=== PATIENT | female | born 1985 | race Caucasian/White ===

== ENCOUNTER → 2019-06-11 10:29 | Outpatient (CLI) | payer BC, SELFPAY ==
--- NOTE | ~2019-06-11 | XR_ITS ---
EXAMINATION: XR abdomen obstructive series DATE: 06/11/2019 10:45 INDICATION: Abdominal pain and bloating TECHNIQUE: Supine and upright views of the abdomen. FINDINGS: No prior studies for comparison. The visualized lung parenchyma is normal.. There is a nonobstructive bowel gas pattern. Gas and stool are seen throughout the colon to the level of the rectum. There is no free air. IMPRESSION: 1. No acute abdominal abnormality. Reviewed, dictated and finalized at location A. FORCE ADVISOR
== END ==
PROVIDERS: PCP Family Medicine; Visit Provider Family Medicine
DX: R10.9 Unspecified abdominal pain (principal)
CPT/HCPCS: 74019

== ENCOUNTER 2020-03-25 12:58 | Emergency (ER) | payer BC, SELFPAY ==
--- NOTE | ~2020-03-25 | XR_ITS ---
EXAMINATION: XR chest 2V DATE: 03/25/2020 13:14 INDICATION: Cough. TECHNIQUE: Frontal and lateral views of the chest were obtained. COMPARISON: None. FINDINGS: The chest demonstrates clear lungs without pneumonia, pleural effusion, or pneumothorax. Th e heart size is normal. IMPRESSION: 1. No acute cardiopulmonary disease. Reviewed, dictated and finalized at location A. CH PASTER
[2020-03-25 13:06] VITALS: BP 115/68; PULSE 73; RESP 20; TEMP 36.4; O2SAT 100
[2020-03-25 13:08] VITALS: BP 115/68; PULSE 73; RESP 20; TEMP 36.4; O2SAT 100
--- NOTE | 2020-03-25 13:31 | ED.URI ---
HPI - URI/Sore Throat General Chief Complaint: Upper Respiratory Infection Stated Complaint: cough Time Seen by Provider: 03/25/20 13:20 Source: patient Mode of arrival: ambulatory Limitations: no limitations History of Present Illness HPI Narrative: Lindsay Armas is a 35 yo female with no PMH who comes to [facility] with complaints of deep cough that worsens at nighttime for the last week. She has had no sore throat except for irritation from all the coughing no sinus congestion or sinus tenderness. She is unaware of any nasal discharge but cough is barking type cough. Patient states that she is been feeling poorly for the week but is not checking her temperature. Unable to sleep at night even sitting up because of the frequency and after coughing Related Data Allergies Allergy/AdvReac Type Severity Reaction Status Date / Time No Known Allergies Allergy Uncoded 07/22/19 07:46 Review of Systems Review of Systems: Narrative: CONSTITUTIONAL: Denies fever, chills, sweats. EYES: Denies visual changes, redness, discharge. ENT: Denies rhinorrhea, congestion, sore throat, otalgia. CARDIOVASCULAR: Denies chest pain, palpitations, edema. RESPIRATORY: Denies dyspnea, wheezing, has deep and persistent cough GASTROINTESTINAL: Denies abdominal pain, nausea, vomiting, diarrhea. GENITOURINARY: Denies dysuria, hematuria, abnormal discharge SKIN: Denies rash or itching. NEUROLOGIC: Denies numbness, or focal weakness. PSYCHIATRIC: Denies anxiety or depression. [facility] Past Medical History Medical History BLAZE (generalized anxiety disorder) Surgical History Surgical History History of bunionectomy left x 2 Family History Family History Other Family history of cardiovascular disease Social History Social History (Updated 03/25/20 @ 13:35 by Tamica Hayes CNP) Years smoked: 15 Smoking status: Former smoker Tobacco type: cigarettes Second hand tobacco smoke exposure: No Smoking end date: 04/06/14 Alcohol intake: current Drinks per week: 3 Substance use: never Substance use type: does not use Gender identity (if verbalized by the patient): Female Comments At time of signature, I agree with nursing past medical, surgical, social and family history. There is no relevant family history pertinent to the presenting complaint. Exam Narrative: Exam Narrative: GENERAL: This is a well-nourished, well-developed patient, in moderate distress. HEAD: normocephalic, atraumatic. EYES: Sclera clear/white. Vision is grossly intact. EARS: External ears normal, auditory canals clear and without drainage, TMs normal without perforation. Hearing grossly intact. NOSE: External nose normal without nasal discharge, nares without redness, no rhinorrhea. Moderate clear drainage posterior pharynx THROAT: Mucous membranes moist, posterior pharynx pink mildly erythematous NECK: Neck supple, non-tender CARDIOVASCULAR: Regular rate and rhythm without murmurs, gallops, or rubs. RESPIRATORY: Diminished to auscultation. Breath sounds equal bilaterally. No wheezes, rales, or rhonchi. GASTROINTESTINAL: Abdomen soft, non-tender, SKIN: warm, intact with no suspicious lesions or rash, good texture and turgor. NEURO: awake, alert, and oriented to person, place and time. There were no obvious focal neurologic abnormalities. Steady gait EXTREMITIES: Normal range of motion. BACK: Nontender without deformity Course Course Emergency Course: Came to [facility] with 1 week history of deep barking cough that keeps her up at night Chest x-ray is negative for cardiopulmonary process Patient started on Zithromax along with prednisone and codeine cough syrup Follow-up with PCP Vital Signs Vital signs: Vital Signs Temperature 97.6 F 03/25/20 13:06 Pulse Rate 73 03/25/20 1
== END 2020-03-25 13:50 | disposition home or self-care (01) ==
PROVIDERS: Emergency Provider Nurse Practitioner; PCP Family Medicine
DX: J40 Bronchitis, not specified as acute or chronic (principal); Z87.891 Personal history of nicotine dependence
CPT/HCPCS: 71046; 99213; G0463

== ENCOUNTER → 2020-11-19 12:05 | Outpatient (CLI) | payer OTHER, SELFPAY ==
--- NOTE | ~2020-11-19 | XR_ITS ---
XR_CERV2-3V_CR 11/19/2020 12:44 Indication: Cervicalgia Procedure: 3 view cervical spine Comparison: No prior studies for comparison. Findings: Straightening of cervical lordosis, likely due to muscle spasm or patient positioning. No f racture or traumatic malalignment. No prevertebral soft tissue abnormality. No foreign bodies. Odonto id process within normal limits. Mild disc narrowing at C5-6. There is mild uncinate degenerative jitendra nges at C4-5 and C5-6. Impression: 1: Mild cervical spondylosis. Reviewed, dictated and finalized at location A. Impression: 1: Mild cervical spondylosis.
== END ==
PROVIDERS: PCP Family Medicine; Visit Provider Family Medicine
DX: M47.892 Other spondylosis, cervical region (principal)
CPT/HCPCS: 72040

== ENCOUNTER → 2021-04-19 12:35 | Outpatient (CLI) | payer OTHER, SELFPAY ==
--- NOTE | ~2021-04-19 | XR_ITS ---
EXAMINATION: XR abdomen/kub 1V EXAM DATE: 04/19/2021 13:28 INDICATION: Gross hematuria. TECHNIQUE: Frontal projection(s) of the abdomen for interpretation. Comparison is made to prior exami nation from 06/11/2019. FINDINGS: There is moderate amount of colonic stool and gas. No small bowel dilation, nonobstructiv e bowel gas pattern. There are no suspicious calcifications identified. There is no organomegaly suspected. The bones are unremarkable. IMPRESSION: Moderate amount of colonic stool. Reviewed, dictated and finalized at location A. LIFTER
--- NOTE | ~2021-04-19 | CT_ITS ---
EXAMINATION: CT abdomen pelvis wo/w con DATE: 04/19/2021 13:28 INDICATION: Gross hematuria TECHNIQUE: Computed tomography (CT) of the abdomen and pelvis was performed without intravenous contr ast. CT of the abdomen and pelvis was then performed with a total of 130 mL Omnipaque 350 intravenous contrast using a double-bolus technique for simultaneous opacification of the renal parenchyma and r enal collecting system. The dose-length product (DLP) was 1174.34 mGy-cm. Automated exposure control and iterative reconstruction technique were employed. COMPARISON: None FINDINGS: Minimal dependent atelectasis is present in the lung bases. The heart size is normal. The l iver, spleen, pancreas, gallbladder, and adrenal glands are normal. No stones are identified in the k idneys, ureters, or bladder. There is no hydronephrosis or hydroureter. A millimeter hypoattenuating lesion of the left kidney is too small to characterize but likely represents a cyst. Portions of the right distal ureter are not opacified however no suspicious renal or urothelial lesion is identified. No pathologically enlarged abdominal or pelvic lymph nodes are identified. There is no free intraper itoneal gas or evidence of bowel obstruction. IMPRESSION: 1. No CT correlate for the patient's symptoms. Reviewed, dictated and finalized at location F. DESTRUCTIVE TESTING SPECIALIST
[2021-04-19 13:04] LABS: Estimated Glomerular Filt Rate > 60
== END ==
PROVIDERS: Visit Provider Nurse Practitioner Adult Health
DX: R31.0 Gross hematuria (principal)
CPT/HCPCS: 74018; 74178; Q9967

== ENCOUNTER 2023-01-29 07:00 | Outpatient (NON) | payer OTHER, SELFPAY | END 2023-01-29 07:01 | disposition home or self-care (01) | LOC: ANHLAB 01-30 10:50 | PROVIDERS: PCP Family Medicine; Visit Provider Internal Medicine Gastroenterology | DX: R10.13 Epigastric pain (principal) | CPT/HCPCS: 88305 ==

== ENCOUNTER 2023-01-29 08:59 | Day surgery (SDC) | payer OTHER, SELFPAY ==
[2023-01-07 14:14] VITALS: BMI 24.1
[2023-01-29 10:05] VITALS: BP 108/56; PULSE 58; RESP 20; TEMP 37.4; O2SAT 100
[2023-01-29] MEDS: LACTATED RINGERS 1,000 ML 150 ML IV CONT (10:15)
--- NOTE | 2023-01-29 10:20 | WPDANESEPPF ---
Anes - Initial Pre Proc Eval Procedure: Operation Date: 01/29/23 11:30 Proposed Procedures p Esophagogastroduodenoscopy - Oleg Tesfaye MD Date/Time: 01/29/23 10:20 Surgeon: Oleg Tesfaye MD Pre Op Diagnosis: Epigastric Pain Patient Data Age: 37 Gender: F Height: 1.73 m Weight: 71.4 kg Last Vital Signs Temp 37.4 C 01/29/23 10:05 Pulse 58 L 01/29/23 10:05 Resp 20 01/29/23 10:05 BP 108/56 L 01/29/23 10:05 Pulse Ox 100 01/29/23 10:05 O2 Del Method Room Air 01/29/23 10:05 Allergies Allergy/AdvReac Type Severity Reaction Status Date / Time No Known Allergies Allergy unknown Uncoded 01/29/23 10:07 Home Medications Medication Instructions Recorded Confirmed Type cetirizine 10 mg tablet 10 mg PO DAILY PRN Diarrhea 12/03/22 01/09/23 History citalopram 10 mg tablet (Celexa) 10 mg PO DAILY 12/03/22 01/29/23 History Patient hx anesthesia problems: none Family hx anesthesia problems: none Results Review: All pre-operative results and documents have been reviewed as part of the pre-operative evaluation. [facility] Past Medical History Medical History Environmental allergies BLAZE (generalized anxiety disorder) History of migraine Surgical History Surgical History History of bunionectomy left x 2 - 2002 and 2009 History of hysterectomy (~07/2022) Family History Family History Grandparent Family history of cardiovascular disease Social History Social History Social History: Smoking packs per day: 0.5 Smoking cigarettes per day: 10.0 Years smoked: 15 Smoking pack-years: 7.50 Smoking status: Former smoker Tobacco type: cigarettes Second hand tobacco smoke exposure: No Smoking end date: 04/06/11 Alcohol intake: current Alcohol use details: rarely Substance use: current Substance use type: marijuana Other substance usage details: daily Lack of Transportation: No Lack of Food: Never True Current Housing: I Have Housing Concerned About Future Housing: No Difficulty Paying Gas/Electric Bills: No Difficulty Paying for Meds: No Currently Unemployed: No Education: Associate Degree Difficulty w/ Childcare or Family Care: No Living arrangements: with family Additional living arrangements comments: Boyfriend and children Occupation/Education: occupation Gender identity (if verbalized by the patient): Female Sexual Orientation (if Verbalized by the Patient): Straight or Heterosexual Spiritual care concerns: No Agree to blood products: Yes Anes - Eval Final PreProcedure Day of Procedure 01/29/23 10:20 Patient weight: normal Heart: regular rate and rhythm Lungs: clear to auscultation Airway: Mallampati scale class II Neurological: alert and oriented Last oral intake: >/= 8 hours ASA classification: II Emergent: no Anesthetic plan: proceed Anesthesia type and monitoring: general GIVS and standard monitoring Results Review: All pre-operative results and documents have been reviewed as part of the pre-operative evaluation. Informed Consent: The patient's anesthetic plan and its attendant risks and benefits were discussed with the patient/family/POA. Questions were solicited and answers provided to the satisfaction of the patient/family/POA.
--- NOTE | 2023-01-29 10:38 | PM.HPGS ---
History of Present Illness History of Present Illness Consent: Risks, benefits, and alternatives have been discussed and questions answered. Patient agrees to proceed with procedure. Chief complaint: Epigastric Pain Narrative: Lindsay Armas is a 37 year old female with epigastric pain and gerd, on nexium but did not help, never had egd Review of Systems Constitutional: Constitutional: Denies headache(s) and Denies weakness Eyes: Eyes: Denies blurry vision ENT: Reports Normal hearing present, Denies headache(s) and Denies neck pain Cardiovascular: Cardiovascular: Denies chest pain and Denies dyspnea Respiratory: Respiratory: Denies dyspnea Gastrointestinal: Gastrointestinal: Reports no additional gastrointestinal complaints Genitourinary: Genitourinary: Denies dysuria Musculoskeletal: Musculoskeletal: Denies neck pain Integumentary/Breasts: Skin/Breast: Denies dry skin Neurologic: Reports Normal hearing present, Denies headache(s) and Denies weakness Psychiatric: Psychiatric: Denies anxiety Endocrine: Endocrine: Denies change in body appearance Hematologic/Lymphatic: Hematologic/Lymphatic: Denies easy bleeding Allergic/Immunologic: Allergic/Immunologic: Denies urticaria PMFSH Past Medical History Medical History Environmental allergies BLAZE (generalized anxiety disorder) History of migraine Surgical History Surgical History History of bunionectomy left x 2 - 2002 and 2009 History of hysterectomy (~07/2022) Family History Family History Grandparent Family history of cardiovascular disease Social History Social History Social History: Smoking packs per day: 0.5 Smoking cigarettes per day: 10.0 Years smoked: 15 Smoking pack-years: 7.50 Smoking status: Former smoker Tobacco type: cigarettes Second hand tobacco smoke exposure: No Smoking end date: 04/06/11 Alcohol intake: current Alcohol use details: rarely Substance use: current Substance use type: marijuana Other substance usage details: daily Lack of Transportation: No Lack of Food: Never True Current Housing: I Have Housing Concerned About Future Housing: No Difficulty Paying Gas/Electric Bills: No Difficulty Paying for Meds: No Currently Unemployed: No Education: Associate Degree Difficulty w/ Childcare or Family Care: No Living arrangements: with family Additional living arrangements comments: Boyfriend and children Occupation/Education: occupation Gender identity (if verbalized by the patient): Female Sexual Orientation (if Verbalized by the Patient): Straight or Heterosexual Spiritual care concerns: No Agree to blood products: Yes Meds Home Medications and Allergies Home Medications Medication Instructions Recorded Confirmed Type cetirizine 10 mg tablet 10 mg PO DAILY PRN Diarrhea 12/03/22 01/09/23 History citalopram 10 mg tablet (Celexa) 10 mg PO DAILY 12/03/22 01/29/23 History Allergies Allergy/AdvReac Type Severity Reaction Status Date / Time No Known Allergies Allergy unknown Uncoded 01/29/23 10:07 Vital Signs Vital Signs - 24 hr 01/29/23 10:05 Temperature 99.4 F Pulse Rate 58 L Respiratory Rate 20 Blood Pressure 108/56 L Pulse Oximetry 100 Oxygen Delivery Room Air Exam Const: General: comfortable and no acute distress HENMT: Face/Nose/Sinus: Normal nares present Eyes: General: appearance normal, both eyes and all related structures Neck: Neck: no JVD Resp: Auscultation: clear to auscultation bilaterally Cardio: Rate: regular rate Rhythm: regular rhythm GI: Inspection: non-distended GI Palp: Yes Soft to palpation Skin: General skin exam: normal color Neuro: General: gait normal Speech: normal speech
[2023-01-29 10:46] VITALS: BP 93/57; PULSE 54; RESP 14; O2SAT 98
--- NOTE | 2023-01-29 10:53 | WPDANESPN ---
Anes - Prog Note Post-Op Date/Time: 01/29/23 10:53 Cardiovascular status: normal Respiratory status: normal Airway patency: baseline Mental status: baseline Post-Op hydration status: normal Vital Signs: Last Vital Signs Temp 37.4 C 01/29/23 10:05 Pulse 54 L 01/29/23 10:46 Resp 14 01/29/23 10:46 BP 93/57 L 01/29/23 10:46 Pulse Ox 98 01/29/23 10:46 O2 Del Method Room Air 01/29/23 10:46 Pain Score (VAS): 0/10 I/O: Intake & Output 01/28/23 01/29/23 01/29/23 23:59 07:59 15:59 Intake Total 300 Balance 300 Patient Feedback: Patient satisfied with anesthetic care.
[2023-01-29 10:56] VITALS: BP 97/54; PULSE 56; RESP 14; O2SAT 100
[2023-01-29 11:06] VITALS: BP 99/56; PULSE 48; RESP 16; O2SAT 100
[2023-01-29 11:15] VITALS: BP 109/74; PULSE 50; RESP 16; O2SAT 100
--- NOTE | 2023-01-29 11:38 | SUR.PHASEII ---
1115; PT DRESSED AND READY FOR DISCHARGE. WAITING TO SPEAK TO DR DAS
== END 2023-01-29 11:21 | disposition home or self-care (01) ==
PROVIDERS: PCP Family Medicine; Visit Provider Internal Medicine Gastroenterology
PROC: 0DJ08ZZ Inspection of Upper Intestinal Tract, Via Natural or Artificial Opening Endoscopic (ICD-10-PCS; CPT 43235; principal; 2023-01-29 11:30)
DX: R10.13 Epigastric pain (principal)
CPT/HCPCS: 43239

== ENCOUNTER 2023-02-16 15:45 | Outpatient (RCR) | payer OTHER, SELFPAY ==
--- NOTE | 2023-01-26 16:04 | OPREHPOC ---
Outpatient Therapy Plan of Care This is a Multidisciplinary Plan of Care that may contain components documented by all disciplines (PT, OT, and ST.) PT Problem 1 PT Problem #1 Knowledge Deficit PT Goal 1 Goal 1. Patient will perform indpendent HEP 2. Patient will verbalize urge suppression strategies Target Visit 5 PT Problem 2 PT Problem #2 Pain PT Goal 1 Goal 1. Patient will report pain no higher than 1/10 with pelvic exam Target Visit 5 PT Problem 3 PT Problem #3 Impaired Functional ADLs PT Goal 1 Goal 1. Patient able to do all activities without pain or pressure more than 2/10 Target Visit 5
--- NOTE | 2023-01-26 16:04 | PTOPEVAL1 ---
Assessment and note entered by Yana Davis DPT Evaluation Information Assessment Status Evaluation Subjective Information Pt reports partial hysterectomy in July 2022 and reports she is feeling a lot of pressure. Previous pelvic floor PT for a lot of tightness/pain issues and was getting a lot of bladder infections . Urinates more than 10 times a day, sometimes 1 time at night. Denies urine leakage, does have the pressure sensation with urination. Can hold urge 30-60 minutes but tries not to hold it that long. Reports a sense of urgency. BM 1-2 times a day, denies pain. Denies fecal incontinence. Recent pain with intercourse 5/10 and lowest 0/10, also reports pain and pressure with pelvic exams and pap smears. Pt has been 2 times, 1 vaginal delivery without complications. Diagnosed with endometriosis and vulvodynia. Patient goal: get rid of pressure and pain Reported Pain Level Pain Score 0: Self Report Assessment PT Clinical Summary The patient is presenting to skilled therapy with a history of pelvic pain and a recent increase in pressure following a hysterectomy in July 2022. She presents with severe increased pelvic floor muscle tone, pain with palpation, and a diastasis which are contributing to her pain and difficulty with most activities including urinating. She will benefit from therapy to address these impairments to reduce pain and dysfunction. Plan of Care Interventions Electrical Stimulation,Hot Pack/Cold Pack,Manual Therapy,Neuro Re-education,Patient/Caregiver Education,Therapeutic Activities,Therapeutic Exercise PT Services Indicated Yes Treatment Frequency and 1 time a week for 4 weeks Duration These treatments will address the objective and functional deficits as defined above. The patient will be advanced safely and appropriately in order for the patient to progress towards his/her prior level of function. Additional exercises will be introduced and as well as a comprehensive home exercise program upon discharge, if needed, ?to ensure carryover of functional gains achieved in the clinic. This treatment plan has been reviewed and agreement upon by the patient.
--- NOTE | 2023-02-23 13:05 | PCPTNOTE ---
Patient called to cancel appointment 02/23/23 and said she would call back to reschedule when able.
--- NOTE | 2023-04-01 08:39 | PTOPDC ---
Assessment and note entered by Yana Davis, DPT Evaluation Information Assessment Status Discharge - Pt Not Present Subjective Information - Assessment PT Clinical Summary The patient has not attended therapy since . Her case will be discharged this date. Plan of Care PT Services Indicated No
== END 2023-04-01 09:16 | disposition home or self-care (01) ==
LOC: ANHGOSHPT 15:45
PROVIDERS: PCP Family Medicine
DX: R10.2 Pelvic and perineal pain (principal)
CPT/HCPCS: 97110; 97112; 97140; 97162

== ENCOUNTER → 2023-05-19 11:53 | Outpatient (CLI) | payer OTHER, SELFPAY ==
--- NOTE | ~2023-05-19 | XR_ITS ---
XR lumbar spine 2-3V DATE: 05/19/2023 12:16 INDICATION: Jamming injury one month ago. Low back pain, right leg pain TECHNIQUE: AP, lateral, coned lateral lumbosacral views COMPARISON: None FINDINGS: Mild thoracolumbar dextroscoliosis. There is mild degenerative spurring of the lumbar vertebral bodies. Lumbar and lumbosacral interspace s are relatively well preserved. The lumbar pedicles are intact. No lumbar spine fracture or bone destruction. No spondylolisthesis. The sacroiliac joints are intact. As a prominent amount of fecal material throughout much of the colon. IMPRESSION: Mild degenerative spurring Mild thoracolumbar dextroscoliosis Prominent amount of fecal material throughout much of the colon Reviewed, dictated and finalized at location L. CH SERVICE ASSOCIATE
== END ==
PROVIDERS: PCP Nurse Practitioner Family; Visit Provider Nurse Practitioner Family
DX: M79.661 Pain in right lower leg (principal)
CPT/HCPCS: 72100

== ENCOUNTER 2023-06-10 08:00 | Outpatient (RCR) | payer OTHER, SELFPAY ==
--- NOTE | 2023-05-21 16:00 | OPREHPOC ---
Outpatient Therapy Plan of Care This is a Multidisciplinary Plan of Care that may contain components documented by all disciplines (PT, OT, and ST.) PT Problem 1 PT Problem #1 Knowledge Deficit PT Goal 1 Goal 1 indep with HEP 2* pt maintain correct posture with HEP PT Problem 2 PT Problem #2 Pain PT Goal 1 Goal 1* pt report pain at worst of 3/10 2* self assessment Oswestry score of 20% limitation in activity level 3* standing trunk flexion- fingers to knees, without an increase in pain 4* supine R hip IR without an increase in pain PT Problem 3 PT Problem #3 Impaired Strength PT Goal 1 Goal improve lumbar-sacral stability to support spine and allow for movement without pain 1* pt report able to walk her dog for 1 mile without pain increase 2* pt perform 20 reps of sitting ball exercises with good stability
--- NOTE | 2023-05-21 16:01 | PTOPEVAL1 ---
Assessment and note entered by Melissa Medellin, PT Evaluation Information Assessment Status Evaluation Diagnosis strain of back muscles, ligaments Onset Apr 2023 Subjective Information onset of pain when at gym, lifting weights and over did it; have been trying to do some back stretching-- helps little; x ray was negative per pt; muscle relaxer prescribed, not really help her back; had massage last week and made it worst; had pelvic floor therapy Jan 2023, but did not have back pain at that time; Activity: work office, sitting; prior to back pain no limitations in activity level; fitness: have been doing lifts, squats; previously was runner, trying to go lower impact and more strengthening at gym; since pain, have not been doing weights, but yoga. Reported Pain Level Pain Score Self Report Additional Pain Score Comments pain range in the past week 1-9/10; burning R> L side low back, wrap around to anterior hip R > L has massage last week, she did massage over abdomen and more abdominal and anterior hip pain, over weekend, could not get out of bed; decrease pain: lie on bed with adjustment of legs up; heat increase pain: walking 1/2 to 3/4 mile walking dog, then on fire sleeping OK; muscle relaxer script not helping' also having R TMJ pain, muscle relaxer is helping it; some vertigo and going to ENT; Assessment PT Clinical Summary Lindsay has the diagnosis of strain of low back. She reports onset after increasing her fitness exercises and lifting at the gym. Pain is in low back and wrapping aorund her hips to abdomen. Oswestry self assessment rating of 40% limitation in activity level. Pain is increased with sitting , standing and walking. She is no longer doing lifting at the gym, but is doing yoga and stretching at home. She has had pelvic floor therapy treatment in the past. With the evaluation: her pain is increased with standing trunk flexion and rotation R motions, supine R hip IR and prone L knee flexion stretching; there are mo
--- NOTE | 2023-06-19 09:00 | PTOPDC ---
Assessment and note entered by Melissa Medellin, PT Discharge Information Assessment Status Discharge - Pt Not Present Diagnosis strain of back muscles, ligaments Onset Apr 2023 Assessment PT Clinical Summary Lindsay has received 3 PT sessions. She called on , stating she was better and wanted to cancel therapy. Discharge per pt request. The goals were not addressed. Plan of Care PT Services Indicated No
== END 2023-06-19 10:31 | disposition home or self-care (01) ==
LOC: ANHPT 08:00
PROVIDERS: PCP Nurse Practitioner Family; Visit Provider Nurse Practitioner Family
DX: S39.012A Strain of muscle, fascia and tendon of lower back, initial encounter (principal); R42 Dizziness and giddiness
CPT/HCPCS: 97110; 97161; 97530

== ENCOUNTER 2023-10-02 10:50 | Outpatient (CLI) | payer OTHER, SELFPAY ==
--- NOTE | ~2023-10-02 | US_ITS ---
EXAMINATION: US thyroid DATE: 10/02/2023 11:02 INDICATION: Nontoxic goiter, unspecified. TECHNIQUE: Multiple ultrasound images of the thyroid were obtained. COMPARISON: None. FINDINGS: The right thyroid lobe measures 4.8 x 1.8 x 2.0 cm. The left thyroid lobe measures 5.8 x 1.8 x 1.6 c m. The thyroid demonstrates heterogeneous echogenicity. Vascularity is increased. No discrete nodule . IMPRESSION: 1. Heterogeneous, hypervascular thyroid, consistent with chronic lymphocytic (Win's) thyroiditi s. Reviewed, dictated and finalized at location A. IMPRESSION: 1. Heterogeneous, hypervascular thyroid, consistent with chronic lymphocytic (H ashimoto's) thyroiditis.
== END 2023-10-02 10:51 ==
LOC: GOSHIMG 10:52
PROVIDERS: PCP Family Medicine; Visit Provider Nurse Practitioner Family
DX: E04.9 Nontoxic goiter, unspecified (principal); E06.3 Autoimmune thyroiditis; R53.83 Other fatigue
CPT/HCPCS: 76536

== ENCOUNTER 2024-09-02 08:20 | Emergency (ER) | payer OTHER, SELFPAY ==
--- NOTE | ~2024-09-02 | CT_ITS ---
CLINICAL INDICATION: Lower abdominal pain COMPARISON: 04/19/2021. TECHNIQUE: Multiple contiguous axial images of the abdomen and pelvis were performed following the ad ministration of with 100 mL Omnipaque-350 intravenous contrast The dose-length product (DLP) was 316.49 mGy-cm. Automated exposure control and iterative reconstruction technique were employed. FINDINGS/OBSERVATIONS: Visualized lower thorax: The bilateral lung bases are clear. The heart is of normal size, without pericardial effusion. Small hiatal hernia is present. Liver: The liver demonstrates homogeneous enhancement and is not enlarged. Gallbladder and biliary system: The gallbladder is only minimally distended, and otherwise unremarkable. Pancreas: The pancreas enhances homogeneously without ductal dilatation. Spleen: The spleen enhances homogeneously and is not enlarged. Kidneys: The bilateral kidneys enhance symmetrically without hydronephrosis or renal calculi. Adrenal glands: Unremarkable. Gastrointestinal tract: Extensive fecal stasis distending the colon. Appendix: The appendix is not definitively visualized. However, no pericecal inflammatory change is identified suggest the presence of acute appendicitis. Vasculature: Unremarkable. Lymph nodes: No pathologically enlarged or morphologically suspicious lymph nodes within the retroperitoneum or at the root of the mesentery. Pelvic structures: The bladder is distended, and otherwise unremarkable. The uterus is surgically absent. Body wall and musculoskeletal: No significant degenerative disease within the lower thoracic or lumbosacral spine. IMPRESSION: Extensive fecal stasis distending the entirety of the colon without mural thickening or surrounding i nflammatory change. Otherwise, no acute pathology within the lower chest, abdomen or pelvis, as detailed above. Reviewed, dictated and finalized at location A. IMPRESSION: Extensive fecal stasis distending the entirety of the colon without mural thick ening or surrounding inflammatory change. Otherwise, no acute pathology within the lower chest, abdomen or pelvis, as det william above.
--- OUTSIDE RECORDS SUMMARY | 2024-09-02 08:26 | XMS_ITS | Clinical Summary ---
Author Organization [facility] Address [address] [place] [address] Phone Care Team Providers Care Technical Developer Name Role Phone Fermin Wesley MD Primary Care Provider [phone] Allergies No known active allergies Medications aloe vera 5,000 mg Capsule Active diphenhydrAMINE (BENADRYL) 25 mg capsule Take 25 mg by mouth. Active d-mannose (AZO D-Mannose) 500 mg Capsule Take 2,000 mg by mouth daily. Active Lacto no.58-[id number] S-larch (Women's Probiotic) 25B cell-25B cell-50 mg Capsule Take 1 capsule by mouth once daily Women's Vaginal Probiotic Active cyclobenzaprine (FLEXERIL) 5 mg Tablet 2 Active citalopram (CeleXA) 20 mg tablet Take 1 Tablet (20 mg) by mouth daily at bedtime. 90 Tablet 2 3 Active Active Problems Problem Noted Date Diagnosed Date History of hysterectomy with salpingectomy and treatment of endometriosis 08/13/2022 Social History Tobacco Use Types Packs/Day Years Used Date Smoking Tobacco: Former Cigarettes 0.5 10 0 04/06/2002 - 04/06/2012 Passive Smoke Exposure: Never Smokeless Tobacco: Never Alcohol Use Standard Drinks/Week Comments Yes 1 (1 standard drink = 0.6 oz pur e alcohol) Feeling Safe Answer Date Recorded Are you in a relationship wi th someone who hurts you emotionally and/or physically? Unable to obtain 07/24/2022 Comments No Sex and Gender Information Value Date Recorded Sex Assigned at Not on file Legal Sex Female 11:43 AM CDT Gender Identity Not on file Sexual Orientation Not on file Last Filed Vital Signs Vital Sign Reading Time Taken Comments Blood Pressure 120/76 10/20/2022 1:44 PM CDT Pulse 54 07/24/2022 1:39 PM CDT Temperature 36.6 C (97.8 F) 07/24/2022 1:39 PM CDT Respiratory Rate 16 07/24/2022 1:39 PM CDT Oxygen Saturation 100% 07/24/2022 1:39 PM CDT Inhaled Oxygen Concentration - - Weight 74.1 kg (163 lb 6.4 oz) 10/20/2022 1:44 P M CDT Height 170.2 cm (5' 7) 10/20/2022 1:44 PM CDT Body Mass Index 25.59 10/20/2022 1:44 PM CDT Plan of Treatment Upcoming Encounters Date Type Department Care Team (Late st Contact Info) Description 09/06/2024 3:30 PM CDT Ancillary Procedure [facility] MACHINE TOOL TECHNOLOGY INSTRUCTOR - [facility] [address] [place] [phone] 09/06/2024 4:00 PM CDT Office Visit [facility] MACHINE TOOL TECHNOLOGY INSTRUCTOR - [address] [phone] Jayme Delong MD [address] [address] Health Maintenance Due Date Last Done Comments DTAP/TDAP/TD VACCINES (1 - Tdap) 2003 HEPATITIS B VACCINES (1 of 3 - 19+ 3-dose series) 2003 INFLUENZA VACCINE (#1) 2023 BREAST CANCER SCREENING 2024 HPV VACCINES Aged Out No longer eligi ble based on patient's age to complete this topic Insurance [facility] [id number] RX [employer] RX Member Subscriber Plan / Payer (Ef fective 2022-Present) Name:Lindsay Armas Relation to Subscriber:Self Name:Lindsay Armas Subscriber ID:Not on file Payer ID:Not on file Group ID:[id number] Type:RX Commercial Address: [address] [employer] RX Member Subscriber Plan / Payer (Ef fective 2022-Present) Name:Lindsay Armas Relation to Subscriber:Self Name:Lindsay Armas Subscriber ID:Not on file Payer ID:Not on file Group ID:[id number] Type:RX Commercial Address: [address] Advance Directives For more information, please contact: [phone] * Full Code (Latest Code Status on File) Date Activated Date Inactivated Comments 07/24/2022 6:47 AM 07/24/2022 4:04 PM Care Teams Technical Developer Relationship Specialty Start Date End Date Fermin Wesley MD [address] [facility] [address] [place] [address] PCP - General Family Practice 11/25/21
--- OUTSIDE RECORDS SUMMARY | 2024-09-02 08:26 | XMS_ITS | Encounter Summary ---
Author Organization [facility] Address [address] [place] [address] Phone Care Team Providers Care Lithograph Press Feeder Name Role Phone Quentin Gutierrez MD Primary Care Provider [phone] Encounter Details Date Type Department Care Team (Late st Contact Info) Description 08/15/2024 Results Follow-Up [facility] General Neurology [address] [facility] 6th Floor [address] [place] [address] Esthela Henley PA [address] [place], [place] [id number] CT Temporal Bones WO Contrast Social History Tobacco Use Types Packs/Day Years Used Date Smoking Tobacco: Former Cigarettes Q uit: 04/06/2012 Smokeless Tobacco: Never Alcohol Use Standard Drinks/Week Comments Yes 0 (1 standard drink = 0.6 oz pur e alcohol) AUDIT-C Answer Date Recorded Q1: How often do you have a drink containing alc ohol? Monthly or less 01/28/2024 Q2: How many drinks containi ng alcohol do you have on a typical day when you are drinking? 1 or 2 01/28/2024 Q3: How often do you have si x or more drinks on one occasion? 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 documented in this encounter Plan of Treatment Not on file documented as of this encounter Visit Diagnoses Not on filedocumented in this encounter Care Teams Lithograph Press Feeder Relationship Specialty [place] [address] [place] [address] PCP - General Family Medicine 01/28/24 documented as of this encounter
--- OUTSIDE RECORDS SUMMARY | 2024-09-02 08:26 | XMS_ITS | Referral Summary ---
Author Organization [facility] [address] [facility] [place] Address [address] [place] [address] Care Team Providers Care Refrigerator Crater Name Role Phone Quentin Gutierrez MD Primary Care Provider Encounters Date Type Department Care Team Description 08/31/2024 2:45 PM CDT Office Visit [facility] Primary Care at [address] [phone] Quentin Gutierrez MD Pelvic pain in female (Primary Dx) 08/26/2024 Results Follow-Up [facility] Primary Care at [address] [phone] Abdomen Pelvis WO Contrast 08/26/2024 7:53 AM CDT - 08/26/2024 11:59 PM CDT Hospital Encounter [facility] Radiology [address] [place] [address] Mass of right inguinal region; Constipation, unspecified constipation type Discharge Disposition: Discharge to home or self care 08/24/2024 3:00 PM CDT Office Visit [facility] Primary Care at [address] [phone] Quentin Gutierrez MD Mass of right inguinal region (Primary Dx); Constipation, unspecified constipation type 08/16/2024 Telephone [facility] General Neurology [address] [place] [address] 6th [address] [place] [address] Esthela Henley PA 08/16/2024 Orders Only [facility] General Neurology [address] [facility] 6th Floor [address] [place] [address] Esthela Henley PA Pulsatile tinnitus (Primary Dx); Dizziness and giddiness; Right ear pain; Abnormal CT scan 08/15/2024 Results Follow-Up [facility] Neurology [address] [place] [address] Temporal Bones WO Contrast 08/08/2024 3:39 PM CDT - 08/08/2024 11:59 PM CDT Hospital Encounter [facility] Radiology [facility] [address] [place] [address] Pulsatile tinnitus Discharge Disposition: Discharge to home or self care 08/05/[address] Advanced Medicine [facility] [place] [address] [place] [address] Janet Clements RN 08/04/2024 Orders Only [facility] [address] [place] [address] Esthela Henley PA 08/03/2024 Telephone [facility] General Neurology [address] [place] [address] Esthela Henley PA [employer] SKAGGS 08/03/2024 9:00 AM CDT Office Visit [facility] General Neurology [address] [facility] 6th Floor [address] [place] [address] Esthela Henley PA Vestibular migraine (Primary Dx); Pulsatile tinnitus; Chronic neck pain from Last 3 Months Allergies No known active allergies Medications cetirizine (ZyrTEC) 10 mg tablet Take 1 tablet (10 mg total) by mouth Active Lacto no.76-Bifido-F OS-larch (Women's Probiotic) 25B cell-25B cell-50 mg capsule Take 1 capsule by mouth once daily Women's Vaginal Probiotic Active cyclobenzaprin e (FLEXERIL) 5 mg tablet Take 1 tablet (5 mg total) by mouth 3 (three) times a day as needed for muscle spasms 30 tablet 04/13/19 25 Active citalopram (CeleXA) 20 mg tablet Take 1 tablet (20 mg total) by mouth daily Take with 10 mg tablet to bring total dose to 30 mg daily 90 tablet 05/17/19 026 Active citalopram (CeleXA) 10 mg tablet Take 1 tablet (10 mg total) by mouth daily Take with 20 mg tablet to bring total dose to 30 mg daily 90 tablet 05/17/19 Active coenzyme Q10 100 mg capsule Take 1 capsule (100 mg total) by mouth daily Active riboflavin, vitamin B2, 400 mg tablet Take by mouth Ac tive vitamin b complex tablet Take 1 tablet by mouth daily Active atogepant (Qulipta) 30 mg tablet Take 30 mg by mouth daily 30 tablet 11 08/04/19 25 Active naratriptan (AMERGE) 2.5 mg tabletIndicati ons:Migraine Take 1 tablet (2.5 mg total) by mouth once as needed for migraine for up to 1 dose May repeat in 4 hours if unresolved. Do not exceed 5 mg in 24 hours. 9 tablet 5 08/04/19 25 Active minoxidiL (LONITEN) 2.5 mg tabletIndicati ons:hair loss Take 1.5 mg by mouth daily Active biotin 5 mg tablet Take 2.5 mg by mouth daily Biotin, Minoxidil, B5, B6, C, Zinc compound supplement for hair loss Active cephalexin (KEFLEX) 500 mg capsule Take 1 capsule (500 mg total) by mouth 2 (two) times a day for 7 days 14 capsule 08/27/19 25 025 Active meloxicam (MOBIC) 15 mg tablet Take 1 tablet (15 mg total) by mouth daily 30 tablet 09/01/19 25 025 Active naproxen sodium 220 mg capsule Take 220 mg by mouth every 12 (twelve) hours 025 Discontinued Emgality Pen 120 mg/mL pen injector INJECT 240 MG UNDER SKIN ONCE FOR 30 DAY DOSE THEN 120 MG EVERY 30 DAYS 07/26/19 25 025 Discontinued(Th erapy completed) methylPREDNISo lone (MEDROL DOSEPACK) 4 mg Dosepack Take as directed on package. 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 Assessment & Plan (04/19/2024 12:44 PM SEED BUYER): Explained patient that most of her symptoms are not due to be cause of her thyroid lab abnormalities Clinically she would not notice any different if I started on small dose of levothyroxine therapy Right now she might be going through some subclinical hypothyroidism TSH is still not above 10 Given elevated TPO antibody levels patient definitely has risk to develop autoimmune hypothyroidism in future Recommend to follow on anti-inflammatory diet - Offered patient to try small dose of levothyroxine therapy versus biochemical monitoring at this time - Patient preferred not to start any form of thyroid hormone replacement therapy at this time Advised patient to have her thyroid labs checked every 3 months and follow-up in office in 6 months Establishing care with new doctor, encounter for 01/28/2024 Assessment & Plan (01/28/2024 2:44 PM CDT): A(n) yearly well visit to establish care has been performed today. Lindsay ARMAS is not up to date on screening tests. She is in need of hep B, C and Cholesterol screening. She is not up to date on needed preventative vaccinations; She is in need of Tdap/Td. We discussed healthy lifestyle habits, educational material has been given. Medications reviewed, changes documented as per the medical record and discussed with patient along with risks vs benefits. Specific topics reviewed: drugs, ETOH, and tobacco, importance of regular dental care, importance of regular exercise, importance of varied diet, limit TV, media violence, minimize junk food, and seat belts. Return in 2 months History of hysterectomy 08/13/2022 Vulvar vestibulitis 01/21/2022 Female genital symptoms 11/11/2017 Dysuria 01/17/2015 Chronic female pelvic pain 01/05/2015 Dysmenorrhea 01/05/2015 Endometriosis 01/05/2015 Dyspareunia, female 12/22/2014 Urinary frequency 12/22/2014 Immunizations Immunization Administration Dates Next Due DTP 12/10/1989,12/06/1987,1984 ,1984 MMR 01/10/1993,03/06/1988 OPV 12/10/1989,12/06/1987,1984 ,1984 Social History Tobacco Use Types Packs/Day Years Used Date Smoking Tobacco: Former Cigarettes 0.5 10 Q uit: 04/06/2012 Smokeless Tobacco: Never Tobacco Cessation:Counseling Given: Not Answered Alcohol Use Standard Drinks/Week Comments Yes 0 [...] points, staff should administer the PHQ-9) 0 08/31/2024 Comments No Sex and Gender Information Value Date Recorded Sex Assigned at Not on file Legal Sex Female 12:46 AM SEED BUYER Gender Identity Not on file Sexual Orientation Not on file 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 Not on file Not on file Last Filed Vital Signs Vital Sign Reading Time Taken Comments Blood Pressure 98/68 08/31/2024 2:42 PM CDT Pulse 69 08/31/2024 2:42 PM CDT Temperature 36.8 C (98.3 F) 08/31/2024 2:42 PM CDT Respiratory Rate 16 08/31/2024 2:42 PM CDT Oxygen Saturation 98% 08/31/2024 2:42 PM CDT Inhaled Oxygen Concentration - - Weight 65.8 kg (145 lb) 08/31/2024 2:42 PM CDT Height 170.2 cm (5' 7) 08/31/2024 2:42 PM CDT Body Mass Index 22.71 08/31/2024 2:42 PM CDT Plan of Treatment Not on file Medical Devices Implanted Type Area Electrical Cad Designer Device Identifier Shelf Expiration Date Model / Serial / Lot Screw Screw Left: Foot Procedures Procedure Name Priority Date/Time Associated Diagnosis Comments POCT URINALYSIS, AUTO W/O SCOPE Routine 08/31/2024 3:22 PM CDT Pelvic pain in female CT ABDOMEN PELVIS WO CONTRAST Routine 08/26/2024 8:05 AM CDT Mass of right inguinal region Constipation, unspecified constipation type CT TEMPORAL BONES WO CONTRAST Schedule Routine, Read Routine (OP Routine) 08/08/2024 4:31 PM CDT Pulsatile tinnitus HEPATITIS C ANTIBODY Routine 01/28/2024 2:59 PM CDT Need for hepatitis C screening test from Last 3 Months or Most Recently Relevant to Health Maintenance Results * (ABNORMAL) POCT UA, AUTO W/O SCOPE (08/31/2024 3:22 PM CDT) Color, Urine, POC Yellow Clarity, ur, POC Cloudy(A) Clear Glucose, ur, POC Negative Negative Bilirubin, ur, POC Negative Negative Ketones, ur, POC Negative Negative Specific [place], POC 1.015 1.003 - 1.030 Blood, ur, POC Negative Negative pH, ur, POC 8.5(A) 5.0 - 8.0 Protein, ur, POC Negative Negative Urobilinogen, Urine, POC 0.2 <2 MG/DL Leukocytes, ur, POC Negative Negative Nitrite, ur, POC Negative Negative Appearance, fld Cloudy(A) Clear Urine, clean voided 08/31/2024 3:22 PM CDT Quentin Gutierrez MD POINT OF CARE TEST ORDERABL ES Final Result * CT Abdomen Pelvis WO Contrast (08/26/2024 8:05 AM CDT) Anatomical Region Laterality Modality Body N/A Computed Tomogra phy 08/26/2024 8:41 AM CDT Impressions 08/26/2024 9:39 AM CDT Several small reactive appearance in the right inguinal lesion, none of which are pathologically enlarged. No suspicious mass or hernia. Dictated by: Jayme Coffey MD The radiology attending physician has personally reviewed this study, and had reviewed and/or edited this written report and agrees with it. Electronically signed by: Rafael Roman M.D. Narrative 08/26/2024 9:39 AM CDT EXAMINATION: Computed tomography of the abdomen and pelvis without intravenous contrast HISTORY: Right inguinal mass TECHNIQUE: Transaxial computed tomographic images of the abdomen and pelvis were obtained without intravenous contrast according to the standard protocol. COMPARISON: None FINDINGS: Partially imaged lower thorax is unremarkable. Liver, spleen, pancreas, gallbladder, adrenal glands have a normal noncontrast appearance. No hydronephrosis. Urinary bladder is normal. No bowel obstruction. No ascites or pneumoperitoneum. No abdominal or pelvic lymphadenopathy. Abdominal aorta is normal in caliber. Scattered inguinal lymph nodes which are likely reactive. No suspicious osseous lesion. Procedure Note Rafael Roman MD - 08/26/2024 EXAMINATION: Computed tomography of the abdomen and pelvis without intravenous contrast HISTORY: Right inguinal mass TECHNIQUE: Transaxial computed tomographic images of the abdomen and pelvis were obtained without intravenous contrast according to the standard protocol. COMPARISON: None FINDINGS: Partially imaged lower thorax is unremarkable. Liver, spleen, pancreas, gallbladder, adrenal glands have a normal noncontrast appearance. No hydronephrosis. Urinary bladder is normal. No bowel obstruction. No ascites or pneumoperitoneum. No abdominal or pelvic lymphadenopathy. Abdominal aorta is normal in caliber. Scattered inguinal lymph nodes which are likely reactive. No suspicious osseous lesion. IMPRESSION: Several small reactive appearance in the right inguinal lesion, none of which are pathologically enlarged. No suspicious mass or hernia. Dictated by: Jayme Coffey MD The radiology attending physician has personally reviewed this study, and had reviewed and/or edited this written report and agrees with it. Electronically signed by: Rafael Roman M.D. us Quentin Gutierrez MD IMG CT PROCEDURES Final Res ult * CT Temporal Bones WO Contrast (08/08/2024 4:31 PM CDT) Anatomical Region Laterality Modality Head and Neck N/A Computed Tomogra phy 08/09/2024 10:5 0 AM CDT Impressions 08/09/2024 2:54 PM CDT 1. High riding left jugular bulb with 2 jugular diverticula along the superior wall, no dehiscence of the sigmoid plate. 2. Thinning of the right tegmen tympani without dehiscence. Dictated by: Bebe Savage MD The radiology attending physician has personally reviewed this study, and had reviewed and/or edited this written report and agrees with it. Electronically signed by: Maury Ribeiro MD Narrative 08/09/2024 2:54 PM CDT EXAMINATION: CT of the temporal bones without contrast HISTORY: 39-year-old female with pulsatile tinnitus, history of indeterminate white matter changes possibly reflecting demyelinating disease TECHNIQUE: CT of the temporal bones was performed according to the standard protocol without intravenous contrast. COMPARISON: MRI brain 05/24/2024 FINDINGS: The limited examination of the brain is normal. The scalp is normal. The squamosal portions of the temporal bones are normal. The pinnae are normal. The external auditory canals, including cartilaginous and bony portions, are normal. There is no fluid or mass in the middle ear cavities. The middle ear ossicles are intact, and there are no erosions. There is thinning of the right tegmen tympani without findings of dehiscence. The sinus tympani and pyramids are normal. The facial nerves, including labyrinthine, geniculate, horizontal, and descending segments, are normal. The bony labyrinths including the cochlea, vestibule, and semicircular canals bilaterally are normal without evidence of dehiscence or congenital malformation. The bone is normal without evidence of otosclerosis. The internal auditory canals are normal. The vestibular aqueducts are normal. The cochlear aqueducts are normal. The mastoids are well developed without evidence of fluid or fracture. There is a high riding left internal jugular bulb with 2 areas of outpouching along the superior wall consistent with jugular diverticula, no dehiscence of the sigmoid plate. Pneumatization of petrous apices. Mild calcification of the styloid ligaments. Procedure Note Maury Ribeiro MD PhD - 08/09/2024 EXAMINATION: CT of the temporal bones without contrast HISTORY: 39-year-old female with pulsatile tinnitus, history of indeterminate white matter changes possibly reflecting demyelinating disease TECHNIQUE: CT of the temporal bones was performed according to the standard protocol without intravenous contrast. COMPARISON: MRI brain 05/24/2024 FINDINGS: The limited examination of the brain is normal. The scalp is normal. The squamosal portions of the temporal bones are normal. The pinnae are normal. The external auditory canals, including cartilaginous and bony portions, are normal. There is no fluid or mass in the middle ear cavities. The middle ear ossicles are intact, and there are no erosions. There is thinning of the right tegmen tympani without findings of dehiscence. The sinus tympani and pyramids are normal. The facial nerves, including labyrinthine, geniculate, horizontal, and descending segments, are normal. The bony labyrinths including the cochlea, vestibule, and semicircular canals bilaterally are normal without evidence of dehiscence or congenital malformation. The bone is normal without evidence of otosclerosis. The internal auditory canals are normal. The vestibular aqueducts are normal. The cochlear aqueducts are normal. The mastoids are well developed without evidence of fluid or fracture. There is a high riding left internal jugular bulb with 2 areas of outpouching along the superior wall consistent with jugular diverticula, no dehiscence of the sigmoid plate. Pneumatization of petrous apices. Mild calcification of the styloid ligaments. IMPRESSION: 1. High riding left jugular bulb with 2 jugular diverticula along the superior wall, no dehiscence of the sigmoid plate. 2. Thinning of the right tegmen tympani without dehiscence. Dictated by: Bebe Savage MD The radiology attending physician has personally reviewed this study, and had reviewed and/or edited this written report and agrees with it. Electronically signed by: Maury Ribeiro MD Esthela SKAGGS IMG CT PROCEDURES Final Re sult * Hepatitis C antibody Blood (01/28/2024 2:59 PM CDT) Hep C Ab Nonreactive Nonreactive Comment: Interpretive Data Nonreactive: Antibodies to HCV not detected. Does NOT exclude the possibility of recent exposure to HCV. Equivocal: Equivocal for HCV antibodies. Supplemental molecular testing will be automatically performed to determine infection status in accordance with current CDC screening recommendations. Reactive: Positive for HCV antibodies. This may represent current or past HCV infection. Supplemental molecular testing will be automatically performed to determine current infection status in accordance with current CDC screening recommendations. Interpretive data was last revised on 2019. Blood 01/28/2024 2:59 PM CDT 01/28/2024 8:53 PM CDT Quentin Gutierrez MD LAB MICROBIOLOGY - GENERAL ORDERABLES Final Result Performing Organization Address City/State/[facility] Phone Number [facility] [id number] [address] [place] [address] from Last 3 Months or Most Recently Relevant to Health Maintenance Insurance [employer] PPO [employer] COVENTRY PPO [facility] CHOICE PLUS [facility] HMO/PPO Address: [address] [address] [place] [address] [facility] CHOICE PLUS [facility] HMO/PPO Address: [address] [address] [place] [address] Care Teams Refrigerator Crater Relationship Specialty Start Date End Date Quentin Gutierrez MD [address] [place] [id number] PCP - General Family Medicine 01/28/24
--- OUTSIDE RECORDS SUMMARY | 2024-09-02 08:26 | XMS_ITS | Clinical Summary ---
Author Organization [facility] Address [address] [place] [address] Care Team Providers Care Patient Ambassador Name Role Phone Quentin Gutierrez MD Primary Care Provider Allergies No known active allergies Medications cetirizine [...] as needed for muscle spasms 30 tablet 3 04/13/19 25 Active citalopram (CeleXA) 20 mg tablet Take 1 tablet (20 mg total) by mouth daily Take with 10 mg tablet to bring total dose to 30 mg daily 90 tablet 3 05/17/19 25 026 Active citalopram (CeleXA) 10 mg tablet Take 1 tablet (10 mg total) by mouth daily Take with 20 mg tablet to bring total dose to 30 mg daily 90 tablet 3 05/17/19 25 026 Active coenzyme Q10 100 mg capsule Take [...] (for the headaches) Referral to neuro at [facility] White matter abnormality on MRI of brain 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 Assessment & Plan (04/19/2024 12:44 PM HAT TRIMMER): Explained patient that most of her symptoms [...] 01/05/2015 Dyspareunia, female 12/22/2014 Urinary frequency 12/22/2014 Encounters Date Type Department Care Team Description 08/31/2024 2:45 PM CDT Office Visit [facility] Medical [facility] Primary Care at [address] [address] Quentin Gutierrez MD Pelvic pain in female (Primary Dx) 08/26/2024 7:53 AM CDT - 08/26/2024 11:59 PM CDT Hospital Encounter [facility] Radiology [address] [place] [address] Mass of right inguinal region; Constipation, unspecified constipation type Discharge Disposition: Discharge to home or self care 08/26/2024 Results Follow-Up [facility] Primary Care at [address] [address] Abdomen Pelvis WO Contrast 08/24/2024 3:00 PM CDT Office Visit [facility] Primary Care at [address] [phone] Quentin Gutierrez MD Mass of right inguinal region (Primary Dx); Constipation, unspecified constipation type 08/16/2024 Telephone [facility] Neurology [address] [facility] 6th [address] [place] [address] Esthela Henley PA 08/16/2024 Orders Only [facility] [address] [facility] 6th [address] [place] [address] Esthela Henley PA Pulsatile tinnitus (Primary Dx); Dizziness and giddiness; Right ear pain; Abnormal CT scan 08/15/2024 Results Follow-Up [facility] [address] [facility] 6th [address] [place] [address] Temporal Bones WO Contrast 08/08/2024 3:39 PM CDT - 08/08/2024 11:59 PM CDT Hospital Encounter [facility]iology [facility] [address] [place] [address] Pulsatile tinnitus Discharge Disposition: Discharge to home or self care 08/05/[address] [facility] 6th [place] [address] [place] [address] Janet Clements RN 08/04/2024 Orders Only [facility] [address] [facility] 6[address] [place] [address] Esthela Henley PA 08/03/2024 9:00 AM CDT Office Visit [facility] [address] [facility] [address] [place] [address] Esthela Henley PA Vestibular migraine (Primary Dx); Pulsatile tinnitus; Chronic neck pain 08/03/2024 Telephone [facility] Neurology [address] [facility] 6th [address] [place] [address] Esthela Henley PA Qulipta PA from Last 3 Months Immunizations Immunization Administration Dates Next Due DTP 12/10/1989,12/06/1987,1984 ,1984 MMR 01/10/1993,03/06/1988 OPV 12/10/1989,12/06/1987,1984 ,1984 Surgical History Surgery Date Site/Laterality Comments ENDOMETRIAL ABLATION 04/06/2014 - 04/05/2015 BUNIONECTOMY 2002,2009 Left HYSTERECTOMY 2022 Medical History Medical History Date Comments Headache Migraines Anxiety Thyroid disease Family History Medical History Relation Name Comments No Known Problems Father Win's thyroiditis Mother Relation Name Status Comments Father Mother Social History Tobacco Use Types Packs/Day Years [...] on file Legal Sex Female 12:46 AM HAT TRIMMER Gender Identity Not on file Sexual Orientation Not on file 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 Not on file Not on file Obstetrics History Last Filed Vital Signs Vital Sign Reading [...] 08/31/2024 2:42 PM CDT Plan of Treatment Health Maintenance Due Date Last Done Comments Breast Cancer Screening-Mammogram 1984 DTaP/Tdap/Td Vaccine (5 - Tdap) 1995 12/10/1989, 12/06/1987, 1984, Additional history exists Regular Well Visit/Exam 18-64 2002 Covid-19 Vaccine ( season) 2023 05/25/2021, 11/24/2020, 10/27/2020 Influenza Vaccine (Season Ended) 2024 Depression Screening 08/31/2025 08/31/2024, 04/13/2024, 01/28/2024 Hepatitis B Screening Completed 01/28/2024 Hepatitis C Screening Completed 01/28/2024 HPV Vaccines Aged Out No longer eligi ble based on patient's age to complete this topic Pneumococcal vaccine <65 Aged Out No longer eligible based on patient's age to complete this topic Varicella Vaccines Discontinued Medical Devices Implanted Type Area Organic Preparation Technician Device Identifier Shelf Expiration Date Model / [...] Negative Ketones, ur, POC Negative Negative Specific [place], POC 1.015 1.003 - 1.030 Blood, ur, POC Negative Negative pH, ur, POC 8.5(A) 5.0 - 8.0 Protein, ur, POC Negative Negative Urobilinogen, Urine, POC 0.2 <2 MG/DL Leukocytes, ur, POC Negative Negative Nitrite, ur, POC Negative Negative Appearance, fld Cloudy(A) Clear Urine, clean voided 08/31/2024 3:22 PM CDT us Quentin Gutierrez MD POINT OF CARE TEST [...] it. Electronically signed by: Rafael Roman M.D. Quentin Gutierrez MD IMG CT PROCEDURES Final [...] LAB MICROBIOLOGY - [place] [id number] [address] Department [place] [address] from Last 3 Months or Most Recently Relevant to Health Maintenance Insurance [employer] COVENTRY PPO AETNA COVENTRY PPO [facility] CHOICE PLUS [place] [id number] [facility] CHOICE PLUS Care Teams Patient Ambassador Relationship Specialty Start Date End Date Quentin Gutierrez MD [address] [address] PCP - General Family Medicine 01/28/24
--- OUTSIDE RECORDS SUMMARY | 2024-09-02 08:26 | XMS_ITS | Encounter Summary ---
Author Organization [facility] Healthcare Address [address] [place] [address] Care Team Providers Care Records And Tape Recordings Engineer Name Role Phone Quentin Gutierrez MD Primary Care Provider Encounter Details Date Type Department Care Team (Late st Contact Info) Description 08/26/2024 Results Follow-Up [facility] Medical Group Primary Care at [address] [phone] Quentin Gutierrez MD [address] [place] [address] [address] [place] [address] CT Abdomen Pelvis WO Contrast Social History Tobacco Use Types Packs/Day Years Used Date Smoking Tobacco: Former Cigarettes 0.5 10 Q uit: 04/06/2012 Smokeless Tobacco: Never Alcohol [...] on file Legal Sex Female 12:46 AM DEVELOPMENT ARCHITECT Gender Identity Not on file Sexual Orientation Not on file 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 21 tablet 08/26/2024 5 documented in this encounter Plan of Treatment Not on file documented as of this encounter Visit Diagnoses Not on filedocumented in this encounter Care Teams Records And Tape Recordings Engineer Relationship Specialty Start Date End Date Quentin Gutierrez MD [address] [facility] [address] [place] [address] PCP - General Family Medicine 01/28/24 documented as of this encounter
[2024-09-02 08:34] VITALS: BP 119/70; PULSE 65; RESP 18; TEMP 36.6; O2SAT 100
[2024-09-02 09:23] LABS: Basophils Percent Auto 0.5 % (0.2-1.2); Eosinophils Absolute Auto 0.4 K/mm3 (0-0.3); Eosinophils Percent Auto 5.8 % (0-4.4); Hematocrit 39.8 % (37.0-47.0); Immature Granulocyte Absolute 0.03 K/mm3 (0.00-0.031); Immature Granulocyte Percent A 0.4 % (0-0.5); Lymphocytes Absolute Auto 1.38 K/mm3 (0.9-3.2); Lymphocytes Percent Auto 18.3 % (18.3-44.2); Mean Corpuscular HGB Conc 32.7 g/dl (32-36); Mean Corpuscular Hemoglobin 31.1 pg (26-34); Mean Corpuscular Volume 95.2 fl (80-100); Mean Platelet Volume 9.2 fl (7.4-10.4); Monocytes Absolute Auto 0.7 K/mm3 (0.1-0.6); Platelet Count Result 251 k/mm3 (150-375); Red Blood Count 4.18 M/mm3 (4.2-5.4); Red Cell Distribution Width 13.3 % (11.5-14.5); White Blood Count 7.5 K/mm3 (4.5-10.0)
[2024-09-02 09:30] VITALS: BP 103/63; PULSE 64; RESP 18; O2SAT 100
[2024-09-02 09:34] LABS: Alanine Aminotransferase 20 U/L (6-35); Albumin Level 4.2 g/dL (3.5-5.1); Alkaline Phosphatase 47 U/L (38-126); Anion Gap 6 mmol/L (4-12); Aspartate Amino Transferase 24 U/L (14-36); Bilirubin,Total 0.4 mg/dL (0.2-1.3); Blood Urea Nitrogen 20 mg/dL (7-17); Calcium 9.5 mg/dL (8.4-10.2); Carbon Dioxide 29 mmol/L (22-30); Chloride 103 mmol/L (98-107); Estimated CRCL calculation 96 ml/min; Estimated Glomerular Filt Rate > 60; Glucose 77 mg/dL (65-110); Lipase 43 U/L (23-300); Sodium 138 mmol/L (137-145)
[2024-09-02 09:36] LABS: Add Urine Microscopic? YES; Appearance Urine Cloudy (Clear); Bacteria Urine 4+ /hpf; Bilirubin Urine Negative (Negative); Blood Urine Negative (Negative); Color Urine Yellow (Yellow); Glucose Urine UA Negative (Negative); Ketones Urine Negative (Negative); Leukocyte Esterase Ur Negative LEU/UL (Negative); Need Manual Microscopic Reviewed; Nitrate Urine Negative (Negative); Protein Urine Negative (Negative); RBC Urine 51-100 /hpf (0-2); Specific Grav Ur 1.013 (1.001-1.035); Squamous Epithelial Cell Urine Moderate /hpf (Few); Urobilinogen Urine 0.2 mg/dL (<2.0)
--- NOTE | 2024-09-02 09:41 | ED_ITS ---
HPI - Abdominal Pain General Chief Complaint: Abdominal Pain Stated Complaint: pelvic pain x1wk Time Seen by Provider: 09/02/24 09:08 Source: patient Mode of arrival: ambulatory Limitations: no limitations History of Present Illness HPI narrative: This is a 39 year old female that presents to the ER for lower abdominal pain. Reports this has been ongoing for a couple of weeks. Reports she had a rash in the right buttock, a swollen lymph node in the right groin. Since also started to experience pelvic pain. She was started on a steroid which seemed to clear up the rash. She also finished a course of Keflex for a possible UTI. She has a hysterectomy 2 years ago. Denies fevers, vomiting, hematuria. Related Data Allergies Allergy/AdvReac Type Severity Reaction Status Date / Time No Known Allergies Allergy unknown Uncoded 09/02/24 08:38 Review of Systems 2 Review of Systems: CONSTITUTIONAL: Denies fever GASTROINTESTINAL: Reports abdominal pain. Denies nausea, vomiting, and diarrhea. GENITOURINARY: Reports dysuria All systems reviewed & are unremarkable except as noted in HPI and below PMFSH Past Medical History Medical History (Updated 09/02/24 @ 11:23 by Brenda Linares PA-C) Fatigue Win's disease Vertigo Ear pain Ear infection Back strain History of migraine Environmental allergies BLAZE (generalized anxiety disorder) Surgical History Surgical History History of hysterectomy (~07/2022) History of bunionectomy left x 2 - 2002 and 2009 Family History Family History Grandparent Family history of cardiovascular disease Social History Social History Social History: Caffeine-coffee Smoking packs per day: 0.5 Smoking cigarettes per day: 10.0 Years smoked: 15 Smoking pack-years: 7.50 Smoking status: Former smoker Tobacco type: cigarettes Second hand tobacco smoke exposure: No Smoking end date: 04/06/11 Alcohol intake: current Alcohol use details: rarely Substance use: current Substance use type: marijuana Other substance usage details: daily Lack of Transportation: No Lack of Food: Never True Current Housing: I Have Housing Concerned About Future Housing: No Difficulty Paying Gas/Electric Bills: No Difficulty Paying for Meds: No Currently Unemployed: No Education: Associate Degree Difficulty w/ Childcare or Family Care: No Living arrangements: with family Additional living arrangements comments: Boyfriend and children Occupation/Education: occupation Gender identity (if verbalized by the patient): Female Sexual Orientation (if Verbalized by the Patient): Straight or Heterosexual Spiritual care concerns: No Agree to blood products: Yes Exam 2 Narrative: GENERAL: Well-appearing, well-nourished, and in no acute distress. HEAD: Normocephalic, atraumatic. EYES: EOMI. CHEST: Clear to auscultation. No respiratory distress. No wheezes rales or rhonchi HEART: Regular rate and rhythm. No murmur heard. Normal peripheral pulses. ABDOMEN: Soft, nontender, nondistended, normal active bowel sounds. EXTREMITIES: Normal range of motion. No edema. SKIN: Warm, dry, no rash. NEURO: No focal deficits. Alert and oriented x3. PSYCH: Normal mood and affect Course Course Emergency Course: Patient updated on her workup and agrees with plan of care Vital Signs Vital signs: Vital Signs Temperature 97.9 F 09/02/24 08:34 Pulse Rate 65 09/02/24 08:34 Respiratory Rate 18 09/02/24 08:34 Blood Pressure 119/70 09/02/24 08:34 Pulse Oximetry 100 09/02/24 08:34 Oxygen Delivery Room Air 09/02/24 08:34 Temperature 97.9 F 09/02/24 08:34 Pulse Rate 60 09/02/24 11:00 Respiratory Rate 16 09/02/24 11:00 Blood Pressure 109/61 09/02/24 11:00 Pulse Oximetry 100 09/02/24 11:00 Oxygen Delivery Room Air 09/02/24 08:34 MDM - Abdominal Pain MDM Narrative Medical decision making narrative: Patient presents to the emergency department for lower abdominal/pelvic pain. This is been ongoing over the last couple of weeks. Reports she had a rash preceding this on her right buttock. Wondering if she possibly is having post herpetic neuralgia. I sent varicella zoster studies. She is afebrile and nontoxic appearing. Her vitals are stable. Cbc without leukocytosis. Metabolic panel without concerning findings. Urine with 11-20 white blood cells, also moderate squamous epithelial cells. This will be sent for culture. Patient is endorsing dysuria, will be started on oral antibiotic. CT abdomen/pelvis shows constipation. She does report she has an outpatient pelvic ultrasound scheduled soon and follow-up with her software packaging engineer. She was instructed to have continued outpatient follow-up. She was given warnings to return to the ER Differential Diagnosis Differential diagnosis: Likely abdominal pain, calculus of kidney, constipation, diverticulitis and other (UTI, shingles) Lab Data Attestation: I reviewed the patient's lab results. 09/02/24 09:17 09/02/24 09:17 Labs: Lab Results 09/02/24 09/02/24 Range/Units 09:16 09:17 WBC 7.5 (4.5-10.0) K/mm3 RBC 4.18 L (4.2-5.4) M/mm3 Hgb 13.0 (12.0-15.0) g/dL Hct 39.8 (37.0-47.0) % MCV 95.2 (80-100) fl MCH 31.1 (26-34) pg MCHC 32.7 (32-36) g/dl RDW 13.3 (11.5-14.5) % Plt Count 251 (150-375) k/mm3 MPV 9.2 (7.4-10.4) fl Immature Gran % (Auto) 0.4 (0-0.5) % Neut % (Auto) 66.0 (45.5-73.1) % Lymph % (Auto) 18.3 (18.3-44.2) % [place] % (Auto) 9.0 H (2.6-8.5) % Eos % (Auto) 5.8 H (0-4.4) % Baso % (Auto) 0.5 (0.2-1.2) % Lymph # (Auto) 1.38 (0.9-3.2) K/mm3 [place] # (Auto) 0.7 H (0.1-0.6) K/mm3 Eos # (Auto) 0.4 H (0-0.3) K/mm3 Baso # (Auto) 0.0 (0.0-0.1) K/mm3 Abs Immat Gran (auto) 0.03 (0.00-0.031) K/mm3 Absolute Neuts (auto) 5.0 (1.3-6.7) K/mm3 Absolute Nucleated RBC 0.000 (0.0-0.012) K/mm3 Nucleated RBC % 0.0 (0.0-0.2) % Sodium 138 (137-145) mmol/L Potassium 4.0 (3.4-5.0) mmol/L Chloride 103 (98-107) mmol/L Carbon Dioxide 29 (22-30) mmol/L Anion Gap 6 (4-12) mmol/L BUN 20 H (7-17) mg/dL Creatinine 0.65 L (0.7-1.0) mg/dL Estim Creat Clear Calc 96 ml/min Estimated GFR > 60 (59 - ) Glucose 77 (65-110) mg/dL Calcium 9.5 (8.4-10.2) mg/dL Total Bilirubin 0.4 (0.2-1.3) mg/dL AST 24 (14-36) U/L ALT 20 (6-35) U/L Alkaline Phosphatase 47 (38-126) U/L Total Protein 7.0 (6.3-8.2) g/dL Albumin 4.2 (3.5-5.1) g/dL Lipase 43 (23-300) U/L Urine Color Yellow (Yellow) Urine Appearance Cloudy H (Clear) Urine pH 7.0 (5.0-9.0) Ur Specific [place] 1.013 (1.001-1.035) Urine Protein Negative (Negative) mg/dL Urine Glucose (UA) Negative (Negative) mg/dL Urine Ketones Negative (Negative) mg/dL Ur Blood (Man) Negative (Negative) Urine Nitrate Negative (Negative) Urine Bilirubin Negative (Negative) Urine Urobilinogen 0.2 (<2.0) mg/dL Add Ur Microanalysis Reviewed Leukocyte Esterase Rfl Negative (Negative) EVE/UL Urine RBC 51-100 H (0-2) /hpf Urine WBC 11-20 H (0-3) /hpf Ur Squamous Epith Cells Moderate (Few) /hpf Urine Bacteria 4+ H /hpf Urine Casts 3-5 VZV IgG Antibody Pending VZV IgM Antibody Pending Imaging Data Radiologist's impression: ITS Impressions Abdomen/Pelvis CT 09/02/24 10:33 IMPRESSION: Extensive fecal stasis distending the entirety of the colon without mural thickening or surrounding inflammatory change. Otherwise, no acute pathology within the lower chest, abdomen or pelvis, as detailed above. Critical Care Time Critical Care Time Critical Care Time: No Discharge Plan Discharge Clinical Impression: Acute UTI Constipation Qualifiers: Constipation type: unspecified constipation type Qualified Code(s): K59.00 - Constipation, unspecified Patient Disposition: Home Condition: Stable Instructions: Antibiotic Form, Constipation (ED), Urinary Tract Infection in Women (ED), Abdominal Pain (ED) Additional Instructions: Return to the ER if you experience fever, abdominal pain with nausea and vomiting, you are unable to keep down liquids or solids, blood in the stool, or any other symptoms that are concerning to you Remain well hydrated. Continue stool softeners/laxatives for constipation. Take oral antibiotics as prescribed for UTI. Your studies that we sent for possible recent shingles will take a couple of days to come back Follow up with your primary care doctor and software packaging engineer for further evaluation Patient Language: Taiwanese Prescriptions: New nitrofurantoin monohyd/m-cryst [Macrobid] 100 mg capsule 100 mg PO Q12H 5 Days Qty: 10 0RF Rx Instructions: must administer with a meal/food No Action baclofen 10 mg tablet 10 mg PO QHS Qty: 30 3RF naproxen 500 mg tablet 500 mg PO Q12H Qty: 60 2RF buspirone 10 mg tablet 10 mg PO BID PRN (Reason: anxiety) Qty: 30 3RF citalopram [Celexa] 10 mg tablet 10 mg PO DAILY Qty: 90 3RF Rx Instructions: Take with citalopram 20 mg citalopram 20 mg tablet 20 mg PO DAILY Qty: 90 3RF Rx Instructions: Take with citalopram 10 mg Follow-up/Referrals: Brenda,Quentin Phillips MD [Primary Care Provider] -
--- OUTSIDE RECORDS SUMMARY | 2024-09-02 09:53 | XMS_ITS | Clinical Summary ---
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 Assessment & Plan (04/19/2024 12:44 PM OIL WELL DRILLING MANAGER): Explained patient that most of her symptoms [...] Description 08/31/2024 2:45 PM CDT Office Visit [facility] Medical Group Primary Care at [address] [address] Quentin Gutierrez MD Pelvic pain in female (Primary Dx) 08/26/2024 7:53 AM CDT - 08/26/2024 11:59 PM CDT Hospital Encounter [facility] Radiology [address] [place] [address] Mass of right inguinal region; Constipation, unspecified constipation type Discharge Disposition: Discharge to home or self care 08/26/2024 Results Follow-Up [facility] Primary Care at [address] [address] Abdomen Pelvis WO Contrast 08/24/2024 3:00 PM CDT Office Visit [facility] Primary Care at [address] [phone] Quentin Gutierrez MD Mass of right inguinal region (Primary Dx); Constipation, unspecified constipation type 08/16/2024 Telephone [facility] Neurology [address] [facility] 6th [address] [place] [address] Esthela Henley PA 08/16/2024 Orders Only [facility] [address] [facility] 6th Floor [address] [place] [address] Esthela Henley PA Pulsatile tinnitus (Primary Dx); Dizziness and giddiness; Right ear pain; Abnormal CT scan 08/15/2024 Results Follow-Up [facility] [address] [facility] 6th [address] [place] [address] Temporal Bones WO Contrast 08/08/2024 3:39 PM CDT - 08/08/2024 11:59 PM CDT Hospital Encounter [facility] [address] [place] [address] Pulsatile tinnitus Discharge Disposition: Discharge to home or self care 08/05/[address] [facility] 6th [place] [address] [place] [address] Janet Clements RN 08/04/2024 Orders Only [facility] [address] [facility] 6th Floor [address] [place] [address] Esthela Henley PA 08/03/2024 9:00 AM CDT Office Visit [facility] [address] [facility] 6th Floor [address] [place] [address] Esthela Henley PA Vestibular migraine (Primary Dx); Pulsatile tinnitus; Chronic neck pain 08/03/2024 Telephone [facility] General Neurology [address] [facility] 6th Floor [address] [place] [address] Esthela Henley PA Qulipta PA [...] on file Legal Sex Female 12:46 AM OIL WELL DRILLING MANAGER Gender Identity Not on file Sexual Orientation Not on file 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 [...] Vaccines Discontinued Medical Devices Implanted Type Area Service Delivery Director Device Identifier Shelf Expiration Date Model / [...] Negative Ketones, ur, POC Negative Negative Specific [place], POC 1.015 1.003 - 1.030 Blood, ur, [...] - [place]AL [place] [id number] [facility] Department [place] [address] from Last 3 Months or Most Recently Relevant to Health Maintenance Insurance [employer] COVENTRY PPO AETNA COVENTRY PPO [facility] CHOICE PLUS [facility] H[facility]PPO Address: [address] [address] [place] [id number] [facility] CHOICE PLUS [facility] H[facility]/PPO Address: [place] [phone] [place] [address] Care Teams Clinical Services Professional Relationship Specialty Start Date End Date Quentin Gutierrez MD [address] [address] PCP - General Family Medicine 01/28/24
--- OUTSIDE RECORDS SUMMARY | 2024-09-02 09:53 | XMS_ITS | Referral Summary ---
Author Organization [facility] [address] [place] Address [address] [place] [address] Care Team Providers Care Buttonhole Maker Name Role Phone Quentin Gutierrez MD Primary Care Provider Encounters Date Type Department Care Team Description 08/31/2024 2:45 PM CDT Office Visit [facility] Primary Care at [address] [phone] Quentin Gutierrez MD Pelvic pain in female (Primary Dx) 08/26/2024 Results Follow-Up [facility] Primary Care at [address] [phone] Abdomen Pelvis WO Contrast 08/26/2024 7:53 AM CDT - 08/26/2024 11:59 PM CDT Hospital Encounter [facility] Radiology [address] [place] [address] Mass of right inguinal region; Constipation, unspecified constipation type Discharge Disposition: Discharge to home or self care 08/24/2024 3:00 PM CDT Office Visit [facility] Primary Care at [address] [phone] Quentin Gutierrez MD Mass of right inguinal region (Primary Dx); Constipation, unspecified constipation type 08/16/2024 Telephone [facility] General Neurology [address] [place] [address] 6th Floor [address] [place] [address] Esthela Henley PA 08/16/2024 Orders Only [facility] General Neurology [address] [facility] 6th Floor [address] [place] [address] Esthela Henley PA Pulsatile tinnitus (Primary Dx); Dizziness and giddiness; Right ear pain; Abnormal CT scan 08/15/2024 Results Follow-Up [facility] Neurology [address] [place] [address] Temporal Bones WO Contrast 08/08/2024 3:39 PM CDT - 08/08/2024 11:59 PM CDT Hospital Encounter [facility] [address] [place] [address] Pulsatile tinnitus Discharge Disposition: Discharge to home or self care 08/05/[address] Advanced Medicine [facility] [place] [address] [place] [address] Janet Clements RN 08/04/2024 Orders Only [facility] [address] [place] [address] Esthela Henley PA 08/03/2024 Telephone [facility] General Neurology [address] [place] [address] Esthela Henley PA [employer] SKAGGS 08/03/2024 9:00 AM CDT Office Visit [facility] General Neurology [address] [facility] 6th Floor [address] [place] [address] Esthela Henley PA Vestibular migraine (Primary Dx); [...] the headaches) Referral to neuro at [facility] White matter abnormality on MRI of brain 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 Assessment & Plan (04/19/2024 12:44 PM FORMAL WEAR RENTAL CLERK): Explained patient that most of her symptoms [...] on file Legal Sex Female 12:46 AM FORMAL WEAR RENTAL CLERK Gender Identity Not on file Sexual Orientation Not on file 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 on file Not [...] on file Medical Devices Implanted Type Area Music Video Producer Device Identifier Shelf Expiration Date Model / [...] Negative Ketones, ur, POC Negative Negative Specific Hercules, POC 1.015 1.003 - 1.030 Blood, ur, [...] GENERAL ORDERABLES Final Result Performing Organization Address City/State/[facility] Phone Number [facility] [phone] [address] Department [place] [address] from Last 3 Months or Most Recently Relevant to Health Maintenance Insurance [employer] PPO [facility] CHOICE PLUS [facility] CHOICE PLUS Care Teams Buttonhole Maker Relationship Specialty Start Date End Date Quentin Gutierrez MD [address] [place] [address] PCP - General Family Medicine 01/28/24
--- OUTSIDE RECORDS SUMMARY | 2024-09-02 09:53 | XMS_ITS | Clinical Summary ---
Author Organization [facility] Address [address] [place] [address] Phone Care Team Providers Care Inventory Taker Name Role Phone Fermin Wesley MD Primary Care Provider [phone] Allergies No known active allergies Medications aloe vera 5,000 mg Capsule Active diphenhydrAMINE (BENADRYL) 25 mg capsule Take 25 mg by mouth. Active d-mannose (AZO D-Mannose) 500 mg Capsule Take 2,000 mg by mouth daily. Active Lacto no.[id number] S-larch (Women's Probiotic) 25B cell-25B cell-50 mg [...] Description 09/06/2024 3:30 PM CDT Ancillary Procedure [facility] - [facility] [address] [place] [phone] 09/06/2024 4:00 PM CDT Office Visit [facility] - [address] [phone] Jayme Delong MD [address] [phone] Health Maintenance Due Date Last Done Comments DTAP/TDAP/TD VACCINES (1 - Tdap) 2003 HEPATITIS B VACCINES (1 of 3 - 19+ 3-dose series) 2003 INFLUENZA VACCINE (#1) 2023 BREAST CANCER SCREENING 2024 HPV VACCINES Aged Out No longer eligi ble based on patient's age to complete this topic Insurance [employer]per[facility] [id number] RX [employer] RX Member Subscriber Plan / [...] Advance Directives For more information, please contact: [phone] * Full Code (Latest Code Status on File) Date Activated Date Inactivated Comments 07/24/2022 6:47 AM 07/24/2022 4:04 PM Care Teams Inventory Taker Relationship Specialty Start Date End Date Fermin Wesley MD [address] [facility] [address] [place] [address] PCP - General Family Practice 11/25/21
--- OUTSIDE RECORDS SUMMARY | 2024-09-02 09:53 | XMS_ITS | Encounter Summary ---
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
--- OUTSIDE RECORDS SUMMARY | 2024-09-02 09:53 | XMS_ITS | Encounter Summary ---
Author Organization [facility] Address [address] [place] [address] Phone Care Team Providers Care Hatchery Employee Name Role Phone Quentin Gutierrez MD Primary Care Provider [phone] Encounter Details Date Type Department Care Team (Late st Contact Info) Description 08/15/2024 Results Follow-Up [facility] General Neurology [address] [facility] 6th Floor [address] [place] [address] Esthela Henley PA [address] [place], [place] [id number] CT Temporal Bones WO Contrast Social History [...] on file Legal Sex Female 12:46 AM DIRECTOR WORK Gender Identity Not on file Sexual Orientation Not on file 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 documented in this encounter Plan of Treatment Not on file documented as of this encounter Visit Diagnoses Not on filedocumented in this encounter Care Teams Hatchery Employee Relationship Specialty [place] [address] [place] [address] PCP - General Family Medicine 01/28/24 documented as of this encounter
--- NOTE | 2024-09-02 10:38 | PC.NURSE ---
called lab to add on UC.
[2024-09-02 11:00] VITALS: BP 109/61; PULSE 60; RESP 16; O2SAT 100
== END 2024-09-02 11:45 | disposition home or self-care (01) ==
PROVIDERS: Emergency Provider Physician Assistant; PCP Family Medicine
DX: N39.0 Urinary tract infection, site not specified (principal); K59.00 Constipation, unspecified; E06.3 Autoimmune thyroiditis; F41.1 Generalized anxiety disorder; Z90.710 Acquired absence of both cervix and uterus; Z87.891 Personal history of nicotine dependence; Z79.899 Other long term (current) drug therapy
CPT/HCPCS: 36415; 74177; 80053; 81001; 83690; 85025; 86787; 87086; 99284; Q9967

== ENCOUNTER 2024-09-05 15:16 | Outpatient (CLI) | payer OTHER, SELFPAY ==
--- NOTE | ~2024-09-05 | US_ITS ---
EXAMINATION: US transvaginal INDICATION: Pelvic pain and pressure Comparison:No prior studies for comparison. TECHNIQUE: Multiple transabdominal and endovaginal sonographic images of the pelvis performed. FINDINGS: The uterus is surgically absent The right ovary measures 3.6 x 2.9 x 4.2 cm and the left ovary measures 2 x 1.3 x 1.9 cm. There are small follicles in each ovary. There is a complex cyst measuring 2.5 cm in the right ovary, possibly hemorrhagic. Follow-up ultrasound in 4-6 weeks recommended to assess for resolution. Normal doppler s ignal in both ovaries. There is no free fluid in the pelvis. There are no abnormal masses seen on either side. IMPRESSION: 1. Complex 2.5 cm right ovarian cyst, likely complicated hemorrhagic cyst. Recommend follow-up ultras ound in 4-6 weeks. Reviewed, dictated and finalized at location A. IMPRESSION: 1. Complex 2.5 cm right ovarian cyst, likely complicated hemorrhagic cyst. Jeffery mmend follow-up ultrasound in 4-6 weeks.
== END 2024-09-05 15:17 | disposition home or self-care (01) ==
LOC: MICIMG 15:16
PROVIDERS: PCP Family Medicine; Visit Provider Family Medicine
DX: R10.2 Pelvic and perineal pain (principal); N83.201 Unspecified ovarian cyst, right side
CPT/HCPCS: 76830

== ENCOUNTER 2024-12-14 10:30 | Emergency (ER) | payer OTHER, SELFPAY ==
--- NOTE | 2024-12-14 10:42 | ED.URI ---
HPI - URI/Sore Throat General Chief Complaint: Upper Respiratory Infection Stated Complaint: SINUS CONGESTION Time Seen by Provider: 12/14/24 11:23 Source: patient and RN notes reviewed Mode of arrival: ambulatory Limitations: no limitations History of Present Illness HPI Narrative: 39-year-old female presents concern for 2 week history of cough, sinus congestion, ear pain and pressure. Reports she has been taking DayQuil and NyQuil. She denies fever. MD elicited complaint: nasal congestion Related Data Allergies Allergy/AdvReac Type Severity Reaction Status Date / Time No Known Allergies Allergy unknown Uncoded 09/02/24 08:38 Review of Systems Review of Systems: CONSTITUTIONAL: Denies malaise, chills, sweats, or fever. EYES: Denies visual changes, redness, or discharge. ENT: Reports rhinorrhea, congestion, sinus pain, otalgia CARDIOVASCULAR: Denies chest pain, palpitations, or edema. RESPIRATORY: Reports cough. Denies dyspnea. GASTROINTESTINAL: Denies abdominal pain, nausea, vomiting, diarrhea SKIN: Denies rash or itching. MUSCULOSKELETAL: Denies myalgia. NEUROLOGIC: Denies headache. All systems reviewed & are unremarkable except as noted in HPI and below PMFSH Past Medical History Medical History (Updated 12/14/24 @ 11:29 by Shantell Lyons NP) Fatigue Win's disease Vertigo Ear pain Ear infection Back strain History of migraine Environmental allergies BLAZE (generalized anxiety disorder) Surgical History Surgical History History of hysterectomy (~07/2022) History of bunionectomy left x 2 - 2002 and 2009 Family History Family History Grandparent Family history of cardiovascular disease Social History Social History Social History: Caffeine-coffee Smoking packs per day: 0.5 Smoking cigarettes per day: 10.0 Years smoked: 15 Smoking pack-years: 7.50 Smoking status: Former smoker Tobacco type: cigarettes Second hand tobacco smoke exposure: No Smoking end date: 04/06/11 Alcohol intake: current Alcohol use details: rarely Substance use: current Substance use type: marijuana Other substance usage details: daily Lack of Transportation: No Lack of Food: Never True Current Housing: I Have Housing Concerned About Future Housing: No Difficulty Paying Gas/Electric Bills: No Difficulty Paying for Meds: No Currently Unemployed: No Education: Associate Degree Difficulty w/ Childcare or Family Care: No Living arrangements: with family Additional living arrangements comments: Boyfriend and children Occupation/Education: occupation Gender identity (if verbalized by the patient): Female Sexual Orientation (if Verbalized by the Patient): Straight or Heterosexual Spiritual care concerns: No Agree to blood products: Yes Comments At time of signature, agree with nursing past medical, surgical, social and family history. There is no relevant family history pertinent to the presenting complaint Exam Narrative: GENERAL: Well-appearing, well-nourished, and in no acute distress. HEAD: Normocephalic EYES: PERRLA, conjunctivae clear ENT: Nares clear, turbinates edematous and erythematous. Mucous membranes moist. TM pearly manzano with dull light reflex bilaterally; no tragal tenderness. Oropharynx not erythematous without lesions. Tonsils not enlarged and without exudate, no drooling, no hoarseness, no trismus, uvula midline. NECK: Supple. No lymphadenopathy CHEST: Clear to auscultation, breath sounds equal. No wheezing, rhonchi, rales, or stridor. No respiratory distress, speaks in full sentences. HEART: Regular rate and rhythm. No murmur heard. SKIN: Warm, dry, no rash. NEURO: Alert and oriented x3. PSYCH: Normal mood and affect Course Course Emergency Course: Patient is aware of diagnosis, understands and agrees to treatment plan. Anticipatory guidance given. Patient agrees to follow-up as directed and is aware of reasons to seek care at the emergency department. Portions of this record may have been created with voice recognition software Level of Care: Express Care Visit Vital Signs Vital signs: Vital Signs Oxygen Delivery Room Air 12/14/24 10:40 Temperature 96.4 F L 12/14/24 10:44 Pulse Rate 65 12/14/24 10:44 Respiratory Rate 16 12/14/24 10:44 Blood Pressure 96/53 L 12/14/24 10:44 Pulse Oximetry 100 12/14/24 10:44 Oxygen Delivery Room Air 12/14/24 10:40 Reviewed. MDM - URI/Sore Throat MDM Narrative Medical decision making narrative: Differential diagnosis considered: Arroyo virus, strep pharyngitis, allergic rhinitis, upper respiratory tract infection, sinusitis, rhinosinusitis, nasopharyngitis. viral pharyngitis, otitis media, otitis externa, pneumonia, bronchitis, viral cough syndrome, viral syndrome, and influenza. Exam findings show no acute concerns or changes; patient is non-toxic appearing and is in no distress. Patient is appropriate for outpatient treatment and follow-up. Lab Data Attestation: I reviewed the patient's lab results. Critical Care Time Critical Care Time Critical Care Time: No Discharge Plan Discharge Clinical Impression: Sinusitis Patient Disposition: Home Condition: Stable Instructions: Antibiotic Form, Sinusitis (ED) Additional Instructions: Take medication as prescribed Nonprescription pain medications, such as acetaminophen (eg, Tylenol) or ibuprofen (eg, Motrin, Advil), are recommended for pain. Flushing the nose and sinuses with a saline solution several times per day has been proven to decrease pain associated with congestion and shorten the duration of symptoms. Nasal steroids (such as Flonase, 2 sprays in each nostril daily) can help to reduce swelling inside the nose, usually within two to three days. These drugs have few side effects and relieve symptoms in most people. Medications to thin secretions (such as guaifenesin) may help to clear mucus. Please follow-up with your primary care doctor in the next 1-2 days. If you cannot follow-up with your primary care doctor please go to the ED for any urgent issues. If you have any worsening of symptoms or any other concerns please go to the ED immediately. Patient Language: Ukrainian Prescriptions: New amoxicillin-pot clavulanate 875-125 mg tablet 1 tablet PO Q12H 10 Days Qty: 20 0RF methylprednisolone [Medrol (Rambo)] 4 mg tablets,dose pack See Rx Instructions .ROUTE .COMPLEX Qty: 21 0RF Rx Instructions: orally per package directions No Action baclofen 10 mg tablet 10 mg PO QHS Qty: 30 3RF buspirone 10 mg tablet 10 mg PO BID PRN (Reason: anxiety) Qty: 30 3RF citalopram 20 mg tablet 20 mg PO DAILY Qty: 90 3RF Rx Instructions: Take with citalopram 10 mg Follow-up/Referrals: Brenda,Quentin Phillips MD [Primary Care Provider, Unknown] Time of Disposition: 11:30
[2024-12-14 10:44] VITALS: BP 96/53; PULSE 65; RESP 16; TEMP 35.8; O2SAT 100
== END 2024-12-14 11:33 | disposition home or self-care (01) ==
PROVIDERS: Emergency Provider Nurse Practitioner; PCP Family Medicine
DX: J32.9 Chronic sinusitis, unspecified (principal); Z87.891 Personal history of nicotine dependence; E06.3 Autoimmune thyroiditis; F41.1 Generalized anxiety disorder
CPT/HCPCS: 99213; G0463